=== PATIENT | female | born 1955 | race Hispanic/Latino ===

== ENCOUNTER 2018-01-20 08:58 | Day surgery (SDC) | payer MEDICAID ==
[2018-01-19 10:37] LABS: BASOPHILS % (AUTO) 0.9 % (0.0-5.0); EOSINOPHILS % (AUTO) 2.2 % (0.0-8.0); HEMATOCRIT 41.3 % (36-48); LYMPHOCYTES % (AUTO) 38.6 % (21.0-51.0); MEAN CORPUSCULAR HGB CONC 34.5 g/dL (32.0-36.0); MEAN CORPUSCULAR VOLUME 89.8 fL (79-99); MONOCYTES % (AUTO) 5.6 % (3.0-13.0); NEUTROPHILS % (AUTO) 52.7 % (40.0-77.0); NUCLEATED RED BLOOD CELLS 0.1 % (0.0-0.19); PLATELET COUNT (AUTO) 353 K/uL (130-400); RED CELL DISTRIBUTION WIDTH 13.6 % (11.0-15.5); WHITE BLOOD COUNT (AUTO) 8.3 K/uL (4.8-10.8)
[2018-01-19 10:39] VITALS: BP 141/67
[~2018-01-20] VITALS: Ht 160 cm; Wt 72.7 kg
[2018-01-20] VITALS (14 sets, daily range): BP systolic 113–165; BP diastolic 61–88
[~2018-01-20 08:58] MED LIST: ATOR40TA71 PO; CHOL500050 PO; LOSA25TA21 PO; NAPR-1023 PO
[2018-01-20] MEDS: LACTATED RINGERS 1000ML 1,000 ML IV SCH ×2 (09:39→10:40)
[2018-01-20] MEDS ORDERED: LIDOCAINE PF 2% 5ML ABBOJECT ONE (09:57)
[2018-01-20] MEDS ORDERED: DEXAMETHASONE SOD PHOSPHATE 10MG/ML 1ML VIAL ONE (09:57)
[2018-01-20] MEDS ORDERED: GLYCOPYRROLATE 0.2 MG/ML 5 ML VIAL ONE (09:57)
[2018-01-20] MEDS ORDERED: PROPOFOL 10 MG/ML 20ML VIAL IV ONE (09:58)
[2018-01-20] MEDS ORDERED: MIDAZOLAM HCL 1 MG/ML 2ML VIAL ONE (09:58)
[2018-01-20] MEDS ORDERED: FENTANYL CITRATE PF 50 MCG/1 ML 2ML VIAL ONE (09:58)
[2018-01-20] MEDS ORDERED: MEPERIDINE-PF 25 MG/ML SYG ONE (11:06)
[2018-01-20] MEDS ORDERED: HYDRALAZINE HCL 20 MG/ML VIAL ONE (11:25)
[2018-01-20] MEDS ORDERED: ONDANSETRON HCL MDV 20ML 2 MG/ML VIAL ONE (11:30)
== END 2018-01-20 13:15 | disposition home or self-care (01) ==
LOC: DAH 08:58
PROVIDERS: ATTEND Specialist
DX: N95.0 Postmenopausal bleeding (principal); Z98.890 Other specified postprocedural states; I10 Essential (primary) hypertension; E78.00 Pure hypercholesterolemia, unspecified; Z79.899 Other long term (current) drug therapy; E66.9 Obesity, unspecified; F41.9 Anxiety disorder, unspecified
CPT/HCPCS: 36415; 58120; 85025; 88305; A4351; J1100; J2001; J2175; J2250; J2704; J3010; J3490; J7120 ×2; J0360

== ENCOUNTER 2018-02-20 11:00 | Inpatient (IN) | payer MEDICAID ==
[~2018-02-20] VITALS: Ht 160 cm; Wt 72.9 kg
[2018-02-27 12:53] LABS: BASOPHILS % (AUTO) 0.5 % (0.0-5.0); HEMATOCRIT 41.4 % (36-48); LYMPHOCYTES % (AUTO) 27.8 % (21.0-51.0); MEAN CORPUSCULAR HEMOGLOBIN 31.2 pg (27.0-33.0); MEAN CORPUSCULAR HGB CONC 34.7 g/dL (32.0-36.0); MEAN CORPUSCULAR VOLUME 89.9 fL (79-99); MONOCYTES % (AUTO) 6.8 % (3.0-13.0); NEUTROPHILS % (AUTO) 62.9 % (40.0-77.0); PLATELET COUNT (AUTO) 292 K/uL (130-400); RED BLOOD CELL COUNT(AUTO) 4.61 MIL/uL (4.00-5.50); RED CELL DISTRIBUTION WIDTH 14.8 % (11.0-15.5); WHITE BLOOD COUNT (AUTO) 9.6 K/uL (4.8-10.8)
[2018-02-27 12:56] VITALS: BP 143/74
[2018-02-27] MEDS ORDERED: FLUCTICASONE EN (13:08)
[2018-03-03] VITALS (18 sets, daily range): BP systolic 145–178; BP diastolic 75–97
[2018-03-03] MEDS ORDERED: LACTATED RINGERS 1000ML 1,000 ML IV SCH (08:00)
[2018-03-03] MEDS ORDERED: WATER FOR INJECTION,STERILE 20 ML VIAL IJ ONE (08:00)
[2018-03-03] MEDS: CEFAZOLIN SODIUM 1 GM VIAL IVP ONE ×2 (09:04→09:42)
[2018-03-03] MEDS ORDERED: PROPOFOL 10 MG/ML 20ML VIAL IV ONE (09:37)
[2018-03-03] MEDS ORDERED: LIDOCAINE PF 2% 5ML ABBOJECT ONE (09:37)
[2018-03-03] MEDS ORDERED: GLYCOPYRROLATE 0.2 MG/ML 5 ML VIAL ONE (09:37)
[2018-03-03] MEDS ORDERED: DEXAMETHASONE SOD PHOSPHATE 10MG/ML 1ML VIAL ONE (09:37)
[2018-03-03] MEDS ORDERED: ONDANSETRON HCL 4 MG/2 ML VIAL ONE ×2 (09:37→11:36)
[2018-03-03] MEDS ORDERED: MIDAZOLAM HCL 1 MG/ML 2ML VIAL ONE (09:37)
[2018-03-03] MEDS ORDERED: VASOPRESSIN 20 UNITS/ML 1ML VIAL ONE (09:59)
[2018-03-03] MEDS ORDERED: EPHEDRINE SULFATE 50 MG/ML AMPULE ONE (10:00)
[2018-03-03] MEDS ORDERED: SULFANILAMIDE 120 GM TUBE VG ONE (10:08)
[2018-03-03] MEDS ORDERED: FENTANYL CITRATE PF 50 MCG/1 ML 5ML AMP IV ONE (10:13)
[2018-03-03] MEDS ORDERED: BISACODYL 10 MG SUPP.RECT RC PRN (11:30)
[2018-03-03] MEDS ORDERED: DOCUSATE SODIUM 100 MG CAP PO PRN (11:30)
[2018-03-03] MEDS ORDERED: SIMETHICONE 80 MG TAB.CHEW PO PRN (11:30)
[2018-03-03] MEDS ORDERED: METOCLOPRAMIDE 10 MG/2 ML VIAL ONE (11:36)
[2018-03-03] MEDS ORDERED: MEPERIDINE-PF 25 MG/ML SYG ONE (11:54)
[2018-03-03] MEDS: PROMETHAZINE HCL 25 MG/ML 1ML AMPULE IM PRN ×3 (11:58→17:44)
[2018-03-03] MEDS: DEXTROSE 5 %-0.45 % NACL 1,000 ML IV PRN ×3 (13:18→22:32)
[2018-03-03] MEDS: MEPERIDINE-PF 75 MG/ML SYG IM PRN ×2 (14:26→17:44)
[2018-03-04] MEDS: PROMETHAZINE HCL 25 MG/ML 1ML AMPULE IM PRN (00:04)
[2018-03-04] MEDS: MEPERIDINE-PF 75 MG/ML SYG IM PRN (00:06)
[2018-03-04 00:16] VITALS: BP 150/86
[2018-03-04 04:59] VITALS: BP 120/80
[2018-03-04 06:50] LABS: HEMATOCRIT 39.6 % (36-48); MEAN CORPUSCULAR HEMOGLOBIN 31.4 pg (27.0-33.0); MEAN CORPUSCULAR HGB CONC 34.6 g/dL (32.0-36.0); MEAN CORPUSCULAR VOLUME 90.7 fL (79-99); PLATELET COUNT (AUTO) 294 K/uL (130-400); RED BLOOD CELL COUNT(AUTO) 4.37 MIL/uL (4.00-5.50); RED CELL DISTRIBUTION WIDTH 14.7 % (11.0-15.5)
[2018-03-04] MEDS: DEXTROSE 5 %-0.45 % NACL 1,000 ML IV PRN (06:52)
[2018-03-04 07:41] VITALS: BP 143/81
[2018-03-04] MEDS ORDERED: SODIUM CHLORIDE 0.9% 10 ML VIAL IVP PRN (08:00)
[2018-03-04] MEDS ORDERED: ACETAMINOPHEN-CODEINE 300/30MG TAB PO PRN (08:00)
[2018-03-04] MEDS: SIMETHICONE 80 MG TAB.CHEW PO PRN ×4 (08:37→20:52)
[2018-03-04] MEDS: DOCUSATE SODIUM 100 MG CAP PO PRN ×2 (08:37→20:52)
[2018-03-04] MEDS: IBUPROFEN 800 MG TAB PO SCH ×3 (08:40→20:58)
[2018-03-04] MEDS: LOSARTAN 50 MG TABLET PO SCH (09:55)
[2018-03-04] MEDS ORDERED: IBUPROFEN 800 MG TAB PO SCH (11:30)
[2018-03-04 12:06] VITALS: BP 110/66
[2018-03-04 16:07] VITALS: BP 122/72
[2018-03-04 20:52] VITALS: BP 136/72
[2018-03-05 00:23] VITALS: BP 135/71
[2018-03-05] MEDS: IBUPROFEN 800 MG TAB PO SCH ×3 (02:43→14:08)
[2018-03-05 07:33] VITALS: BP 139/75
[2018-03-05] MEDS: SIMETHICONE 80 MG TAB.CHEW PO PRN ×2 (08:42→14:06)
[2018-03-05] MEDS: DOCUSATE SODIUM 100 MG CAP PO PRN (08:42)
[2018-03-05] MEDS: LOSARTAN 50 MG TABLET PO SCH (08:55)
[2018-03-05 11:41] VITALS: BP 141/79
[2018-03-05 15:23] VITALS: BP 138/75
== END 2018-03-05 15:25 | disposition home or self-care (01) | DRG 513 ==
LOC: EDSTATUS 02-26 11:00 → DAHIP 03-03 07:11 → WSH 03-03 12:35
PROVIDERS: ADMIT Specialist; ATTEND Specialist
PROC: 0UT97ZZ Resection of Uterus, Via Natural or Artificial Opening (ICD-10-PCS; principal; 2018-03-03 09:36)
PROC: 0JQC0ZZ Repair Pelvic Region Subcutaneous Tissue and Fascia, Open Approach (ICD-10-PCS; 2018-03-03 09:36)
DX: N81.2 Incomplete uterovaginal prolapse (principal); E78.00 Pure hypercholesterolemia, unspecified; I10 Essential (primary) hypertension
CPT/HCPCS: 36415; 85025; 85027; 86850; 86900; 86901; 88305; A4218; A4344; A4351; J0690; J1100; J2001; J2175; J2250; J2405; J2550; J2704; J2765; J3010; J3490; J7120